=== PATIENT | male | born 2000 | race Caucasian/White ===

== ENCOUNTER 2022-03-13 18:19 | Emergency (ER) | payer BC ==
[2022-03-13] MEDS ORDERED: HYDROcodone/Acetaminophen 5/325 mg Tablet ONE (22:10)
[2022-03-13] MEDS ORDERED: Bacitracin 1 PK ONE (22:18)
== END 2022-03-13 22:43 | disposition home or self-care (01) ==
LOC: CSHERS 18:19
DX: S91.311A Laceration without foreign body, right foot, initial encounter (principal); W25.XXXA Contact with sharp glass, initial encounter
CPT/HCPCS: 12002

== ENCOUNTER 2022-04-17 22:14 | Emergency (ER) | payer BC ==
[2022-04-17 23:56] LABS: SARS-CoV-2 NAA Rapid Test Not Detected (NotDetected)
== END 2022-04-18 00:19 | disposition home or self-care (01) ==
LOC: CSHERS 22:14
DX: M79.10 Myalgia, unspecified site (principal); Z20.822 Contact with and (suspected) exposure to COVID-19; Z87.891 Personal history of nicotine dependence
CPT/HCPCS: 71045; 93005